=== PATIENT | female | born 1955 | race Caucasian/White ===

== ENCOUNTER 2017-03-14 13:39 | Emergency (ER) | payer SELFPAY ==
[~2017-03-14] VITALS: Ht 152.4 cm; Wt 63.6 kg
[2017-03-14] MEDS ORDERED: MECL-111 PO (13:43)
[2017-03-14 14:26] LABS: BASOPHILS % (AUTO) 0.5 % (0.0-2.0); HEMATOCRIT 40.5 % (36-46); HEMOGLOBIN 13.7 g/dL (12.0-16.0); LYMPHOCYTES # (AUTO) 2.8 K/uL (1.0-4.8); LYMPHOCYTES % (AUTO) 43.9 % (22.0-44.0); MEAN CORPUSCULAR HGB CONC 33.7 G/dL (31.0-37.0); MEAN CORPUSCULAR VOLUME 86 fL (80-100); MONOCYTES # (AUTO) 0.5 K/uL (0.1-1.0); MONOCYTES % (AUTO) 7.3 % (2.0-9.0); NEUTROPHILS % (AUTO) 47.3 % (40.0-70.0); PLATELET COUNT (AUTO) 277 K/uL (150-450); RED BLOOD CELL COUNT(AUTO) 4.71 MIL/uL (4.00-5.20); RED CELL DISTRIBUTION WIDTH 14.9 % (11.5-14.5); WHITE BLOOD COUNT (AUTO) 6.4 K/uL (4.5-11.0)
[2017-03-14] MEDS ORDERED: SODIUM CHLORIDE 0.9% 1,000 ML IV ONE (14:30)
[2017-03-14 14:38] LABS: ANION GAP 8 mmol/L (8-16); CARBON DIOXIDE 28 mmol/L (22-29); CHLORIDE 104 mmol/L (98-107); GLOMERULAR FILTR. RATE CALC > 60 mL/min (>60); SODIUM SERUM 140 mmol/L (136-145); UREA NITROGEN, BLOOD 13 mg/dL (7-18)
[2017-03-14 14:43] LABS: ALANINE AMINOTRANSFERASE 57 U/L (12-78); ALBUMIN 3.9 g/dL (3.4-5.0); ASPARTATE AMINOTRANSFERASE 30 U/L (15-37); BILIRUBIN,TOTAL 0.3 mg/dL (0.1-1.0); TOTAL PROTEIN, SERUM 7.5 g/dL (6.4-8.2)
[2017-03-14 16:10] VITALS: BP 126/69
== END 2017-03-14 16:31 | disposition home or self-care (01) ==
LOC: EMS 13:41
DX: S09.90XA Unspecified injury of head, initial encounter (principal); R42 Dizziness and giddiness; W06.XXXA Fall from bed, initial encounter; Y93.89 Activity, other specified; Y92.89 Other specified places as the place of occurrence of the external cause; Y99.8 Other external cause status
CPT/HCPCS: 36415; 70450; 80053; 83690; 84484; 85025; 93005; 96360; 99285; J7030

== ENCOUNTER 2021-06-18 09:45 | Emergency (ER) | payer MEDICAID ==
[~2021-06-18] VITALS: Ht 154.9 cm; Wt 77.3 kg
[~2021-06-18 09:45] MED LIST: MECL-160 PO
[2021-06-18 12:32] VITALS: BP 133/75
[2021-06-18] MEDS ORDERED: IBUP-2070 PO (13:29)
== END 2021-06-18 14:12 | disposition home or self-care (01) ==
LOC: EMS 09:45
DX: S40.011A Contusion of right shoulder, initial encounter (principal); S70.02XA Contusion of left hip, initial encounter; W18.39XA Other fall on same level, initial encounter; Y93.89 Activity, other specified; Y92.89 Other specified places as the place of occurrence of the external cause; Y99.8 Other external cause status
CPT/HCPCS: 73503; 99284

== ENCOUNTER 2021-08-08 17:31 | Emergency (ER) | payer MEDICARE, MEDICAID ==
[~2021-08-08] VITALS: Ht 152.4 cm; Wt 63.6 kg
[~2021-08-08 17:31] MED LIST changes: +IBUP-2070 PO
[2021-08-08 17:33] VITALS: BP 115/73
[2021-08-08] MEDS ORDERED: CEPH-558 PO (17:42)
[2021-08-08] MEDS ORDERED: SULF-261 PO (17:42)
== END 2021-08-08 18:07 | disposition home or self-care (01) ==
LOC: EMS 17:40
DX: L02.31 Cutaneous abscess of buttock (principal); Z79.899 Other long term (current) drug therapy
CPT/HCPCS: 99283; Z7502